=== PATIENT | female | born 1935 | race Caucasian/White ===

== ENCOUNTER 2020-07-24 11:23 | Inpatient (IN) | payer OTHER ==
[~2020-07-24] VITALS: Ht 149.9 cm; Wt 45.2 kg
[~2020-07-24 11:23] MED LIST: ALPR.25 PO; METO25ER PO; [UNRECOGNIZED DRUG - OTHER]
[2020-07-24 12:14] LABS: BASOPHILS ABSOLUTE AUTO 0.04 K/mm3 (0.00-0.23); BASOPHILS PERCENT AUTO 1 % (0-2); EOSINOPHILS ABSOLUTE AUTO 0.04 K/mm3 (0.00-0.68); EOSINOPHILS PERCENT AUTO 1 % (0-6); Hematocrit 41.3 % (33.0-51.0); Hemoglobin 12.7 g/dL (11.5-16.0); IMMATURE GRAN ABSOLUTE AUTO 0.02 K/mm3 (0.00-0.10); IMMATURE GRAN PERCENT AUTO 0 % (0-1); LYMPHOCYTES ABSOLUTE AUTO 1.98 K/mm3 (0.84-5.20); LYMPHOCYTES PERCENT AUTO 25 % (21-46); MONOCYTES ABSOLUTE AUTO 0.43 K/mm3 (0.16-1.47); MONOCYTES PERCENT AUTO 5 % (4-13); Mean Corpuscular HGB 29.6 pg (26.0-34.0); Mean Corpuscular HGB Conc 30.8 g/dL (31.5-36.5); Mean Corpuscular Volume 96 fL (80-100); NEUTROPHILS ABSOLUTE AUTO 5.55 K/mm3 (1.96-9.15); NEUTROPHILS PERCENT AUTO 69 % (41-73); Platelet Count 144 K/mm3 (150-400); RDW Coefficient Variation 15.1 % (11.7-14.2); Red Blood Cell Count 4.29 M/mm3 (3.80-5.20); White Blood Cell Count 8.06 K/mm3 (4.00-11.30)
[2020-07-24 12:19] LABS: Mean Platelet Volume 13.2 fL (9.1-12.4)
[2020-07-24 12:28] LABS: International Normalized Ratio 1.01; Prothrombin Time Results 10.8 Sec (9.7-11.5)
[2020-07-24 12:31] LABS: Alanine Aminotransfer (ALT/SGP 157 U/L (12-78); Albumin, Blood 3.6 g/dL (3.4-5.0); Alk Phos 212 U/L (50-136); Anion Gap 10 mmol/L (6-16); Aspartate Aminotrans (AST/SGOT 101 U/L (12-37); Bilirubin, Total 0.6 mg/dL (0.1-1.0); Blood Urea Nitrogen 29 mg/dL (8-24); Bun/Creatinine Ratio 33.2 (12.0-20.0); CO2, Blood 21 mmol/L (21-32); Chloride, Blood 113 mmol/L (98-108); Creatinine, Blood 0.87 mg/dL (0.40-1.00); Globulin, Blood 3.6 g/dL (2.2-4.0); Glomerular Filtration Rate >60 (60-); Glucose, Blood 161 mg/dL (70-99); Potassium, Blood 4.1 mmol/L (3.5-5.5); Sodium, Blood 144 mmol/L (136-145); Total Protein, Blood 7.2 g/dL (6.4-8.2); Troponin I 0.032 ng/mL (0.000-0.040)
[2020-07-24 12:44] LABS: Free Thyroxine 1.43 ng/dL (0.70-1.60); Magnesium, Blood 2.1 mg/dL (1.6-2.4); Thyroid Stimulating Hormone 2.18 uIU/mL (0.360-4.800)
--- NOTE | 2020-07-24 18:36 | NUR ---
PT ADMITTED TO PCU FROM ER FOR ATRIAL FIBRILLATION. PT IS ACCOMPANIED TO ROOM BY HER DAUGHTER. PT AND DAUGHTER BOTH DENY RECENT DX OF AFIB. PT ARRIVES A&OX4, DENIES CP, STATES MILD SOB WITH ACTIVITY. DILTIAZEM GTT INFUSING AT 5 MG/HR WITH HEART RATE AVERAGING 80-85 BPM. WILL CONTINUE TO MONITOR AND TREAT ACCORDINGLY.
--- NOTE | 2020-07-25 05:44 | NUR ---
shift summary pt rested throughout night ao tele - a fib. rate 70-80's on dilt gtt at 5mg/hr room air - sats >90% independently taking self to bathroom no c/o pain vss call light within reach, bed in lowest position. will continue to monitor.
--- NOTE | 2020-07-25 13:42 | NUR ---
echocardiogram complete
--- NOTE | 2020-07-25 18:48 | NUR ---
PT SUMMARY: PT WAS STOPPED ON CARDIZEM GTT STARTED ON PO METOPROLOL 25MG ADDITIONAL DOSE OF 12.5 WAS GIVEN PT WAS SUSPECTED HAVING VTACH RUNS ON THE MONITOR EKG WAS DONE SHOWS AFIB WITH JUNCTIONAL PACEMAKER RHYTHM PVC'S ABERRANTLY CONDUCTED COMPLEXES, DR RAYO IS AWARE PT NOT TO RESTART ON CARDIZEM GTT ECHO SHOWS EF 27%, PT'S HRR AT THIS TIME AFIB WITH CONSISTENT PVC'S ON THE MONITOR AT THE RATE OF 90-130'S MOSTLY ON THE 90-110'S. PT DENIES ANY CHEST PAIN, DIZZINESS OR FAINTING SPELLS. BP SYSTOLIC 120'S, SATS ABOVE 95% ON RA, AFEBRILE. PT' DAUGHTER WAS AT BEDSIDE THIS AFTERNOON AWARE OF PT'S SITUATION. PT IN BED RESTING AT THIS NO COMPLAINS, CALL LIGHTS IN REACH, WILL REPORT TO ONCOMING SHIFT
--- NOTE | 2020-07-26 05:08 | NUR ---
SHIFT SUMMARY PT RESTED COMFORTABLY THROUGH NIGHT AO X4 ROOM AIR - SATS >90% TELE A FIB - LOPRESSOR AT 2100 GIVEN. RATE IN 90'S-110'S VOIDING TO BATHROOM WITH SBA NO C/O PAIN VSS HAS SOME QUESTIONS ABOUT PLAN OF CARE CALL LIGHT WITHIN REACH, BED IN LOWEST POSITION. WILL CONTINUE TO MONITOR.
[2020-07-26 09:54] LABS: Anion Gap 10 mmol/L (6-16); Blood Urea Nitrogen 31 mg/dL (8-24); Bun/Creatinine Ratio 39.9 (12.0-20.0); CO2, Blood 21 mmol/L (21-32); Calcium, Blood 8.5 mg/dL (8.5-10.1); Chloride, Blood 117 mmol/L (98-108); Creatinine, Blood 0.78 mg/dL (0.40-1.00); Glomerular Filtration Rate >60 (60-); Glucose, Blood 153 mg/dL (70-99); Potassium, Blood 3.8 mmol/L (3.5-5.5); Sodium, Blood 148 mmol/L (136-145)
--- NOTE | 2020-07-26 11:56 | NUR ---
ASSUME CARE: PT IN BED RESTING DURING SHIFT CHANGE, VITALS HRR REMAINED AFIB 90-120'S INCREASES UP TO 160'S WITH EXERTION, BP SYSTOLIC 130'S, SATS ABOVE 95% ON RA, AFEBRILE. DR HULL CONSULTED TODAY DUE TO LOW EF AND MADE SOME MEDICATIONS CHANGES PT STARTED ON DIGOXIN LOADING DOSE 0.5MG GIVEN ON THE FIRST DOSE. PT ALSO STARTED ON ENTRESTO, MG IV CURRENTLY RUNNING AT 100MLS/HR. PT DENIES ANY CHEST PAIN BUT IS FEELING THE FLUTTER WITH EXERTION. NO OTHER ISSUES AT THIS TIME WILL CONTINUE TO MONITOR
--- NOTE | 2020-07-26 17:17 | NUR ---
PT SUMMARY: SEE PREVIOUS NOTE. PT RECEIVED 2 DOSES OF DIGOXIN AT THIS TIME, HRR REMAINED AFIB WITH PVC'S 90-120'S, BP SYSTOLIC 130'S PT DENIES ANY CHEST PAIN, SOB, DIZZINESS OR NAUSEA. PT HAS BEEN IN BED MOST OF THE SHIFT USES BEDSIDE COMMODE FOR TOILETING. NO OTHER ISSUES OR COMPLAINS ENCOUNTERED FOR THE SHIFT. ABLE TO MAKE NEEDS KNOWN, CALL LIGHTS IN REACH WILL REPORT TO ONCOMING SHIFT
[2020-07-27 05:24] LABS: Anion Gap 4 mmol/L (6-16); Blood Urea Nitrogen 17 mg/dL (8-24); Bun/Creatinine Ratio 24.7 (12.0-20.0); CO2, Blood 26 mmol/L (21-32); Calcium, Blood 8.5 mg/dL (8.5-10.1); Chloride, Blood 115 mmol/L (98-108); Creatinine, Blood 0.69 mg/dL (0.40-1.00); Glomerular Filtration Rate >60 (60-); Glucose, Blood 84 mg/dL (70-99); Potassium, Blood 3.9 mmol/L (3.5-5.5); Sodium, Blood 145 mmol/L (136-145)
--- NOTE | 2020-07-27 05:54 | NUR ---
SHIFT SUMMARY PT SLEPT T/O SHIFT. PT ALERT AND ORIENTED X 4. PT ABLE TO USE BEDSIDE COMMODE T/O SHIFT WITH WALKER BY SELF. PT BECAME TACHYCARDIC WITH EXERTION BUT HR STABALIZED AT REST. NO CHEST PAIN OR PRESSURE REPORTED. OXYGEN SATURATION MAINTAINED ABOVE 92% ON RA. BP STABLE. WILL CONTINUE TO MONITOR UNTIL REPORT GIVEN TO DAYSHIFT RN.
--- NOTE | 2020-07-27 18:05 | NUR ---
PT SUMMARY: PT FOR POSS DISCHARGE TOMORROW IF HR STABLE. PT'S HRR INCREASES UP TO 140'S AFIB WITH PVC'S WITH EXERTION RESTING HR 80-100, BP SYSTOLIC 130-150'S, SATS ABOVE 95% ON RA, AFEBRILE. NO ACUTE EVENTS ON TELE, DENIES CHEST PAIN, DIZZINES, MILD PALPITATIONS WITH EXERTION. PT GETS ANXIOUS AT TIMES ALSO STARTED ON DIURETICS OFTEN GETS UP TO USE THE COMMODE. ON DIGOXIN P.O. NO OTHER ISSUES ENCOUNTERED FOR THE SHIFT. HAD ADEQUATE AMOUNT OF URINE OUTPUT ENCOURAGED ADEQUATE FLUID INTAKE. PT IN BED EATING DINNER DAUGHTER AT BEDSIDE, CALLL LIGHTS IN REACH WILL REPORT TO ONCOMING SHIFT
[2020-07-28 05:33] LABS: Anion Gap 8 mmol/L (6-16); Blood Urea Nitrogen 14 mg/dL (8-24); Bun/Creatinine Ratio 17.9 (12.0-20.0); CO2, Blood 26 mmol/L (21-32); Calcium, Blood 8.6 mg/dL (8.5-10.1); Chloride, Blood 110 mmol/L (98-108); Creatinine, Blood 0.78 mg/dL (0.40-1.00); Glomerular Filtration Rate >60 (60-); Glucose, Blood 97 mg/dL (70-99); Magnesium, Blood 1.9 mg/dL (1.6-2.4); Potassium, Blood 3.5 mmol/L (3.5-5.5); Sodium, Blood 144 mmol/L (136-145)
--- NOTE | 2020-07-28 06:23 | NUR ---
SHIFT SUMMARY PT SLEPT T/O SHIFT. PT ALERT AND ORIENTED. INDEPENDENT AND AMBULATORY TO COMMODE. TACHYCARDIC AT TIMES. HR RETURNED TO 90'S WHEN PT NOT AMBULATING. BP STABLE. PT REPORTS NO CP OR PRESSURE. OXYGEN ABOVE 92% ON RA. WILL CONTINUE TO MONITOR UNTIL REPORT GIVEN TO DAYSHIFT RN.
[2020-07-28] MEDS ORDERED: ATORVASTATIN CA40 M1 PO (14:40)
[2020-07-28] MEDS ORDERED: XARELTO15 M1 PO (14:41)
[2020-07-28] MEDS ORDERED: METO25ER PO (14:41)
[2020-07-28] MEDS ORDERED: LANOXIN125 MCG PO (14:41)
[2020-07-28] MEDS ORDERED: ENTRESTO 24 MG1 EACH PO (14:42)
[2020-07-28] MEDS ORDERED: TORSE20 PO (14:42)
[2020-07-28] MEDS ORDERED: SPIR25 PO (14:42)
--- NOTE | 2020-07-28 16:26 | NUR ---
SHIFT SUMMARY PT A&Ox4; CALM AND COOPERATIVE WITH CARE. PT RESTING IN BED DURING SHIFT; UP SBA. PT DENIES PAIN, CHEST PAIN, SOB, NAUSEA AND DIZZINESS. HR 70-90 AT RESTL ELEVATED TO LOW 100'S WITH ACTIVITY. VSS. NO OTHER ACUTE CHANGES NOTED DURING SHIFT. PT EDUCATED ON DISCHARGE INSTRUCTIONS, FOLLOW UP APPOINTMENT, ESTABLISHING PCP AND MEDICATIONS. PRESCRIPTIONS CALLED INTO [facility] PER PT REQUEST. PT AGREEABLE TO SQL SERVER DBA DEVELOPER MEDICATIONS TODAY. PT LEFT ROOM VIA WHEELCHAIR AT 1523. PT STABLE UPON DISCHARGE.
== END 2020-07-28 15:23 | disposition home or self-care (01) | DRG 308 ==
LOC: ER 11:23 → PCU 11:24 → ENPENDDIS 07-28 14:36 → PCU 07-28 15:23
PROVIDERS: Emergency Medicine; Internal Medicine Cardiovascular Disease; Physician Assistant; ADMIT Internal Medicine
DX: I48.91 Unspecified atrial fibrillation (principal); I50.43 Acute on chronic combined systolic (congestive) and diastolic (congestive) heart failure; I25.10 Atherosclerotic heart disease of native coronary artery without angina pectoris; Z95.1 Presence of aortocoronary bypass graft; E78.5 Hyperlipidemia, unspecified; Z87.891 Personal history of nicotine dependence; R74.01 Elevation of levels of liver transaminase levels; R54 Age-related physical debility; I11.0 Hypertensive heart disease with heart failure
CPT/HCPCS: 36415; 71046; 80048; 80053; 83735; 83880; 84439; 84443; 84484; 85025; 85610; 93005; 93010; 93306; 96365; 96366; 96367; 96375; 96376; 99285-25; A9270; A9270-GY; G0008; G0378; J1160; J3475; Q2038

== ENCOUNTER 2022-08-23 09:42 | Emergency (ER) | payer OTHER ==
[~2022-08-23] VITALS: Ht 152.4 cm; Wt 47.6 kg
[~2022-08-23 09:42] MED LIST changes: +ATORVASTATIN CA40 M1 PO; +ENTRESTO 24 MG1 EACH PO; +LANOXIN125 MCG PO; +SPIR25 PO; +TORSE20 PO; +XARELTO15 M1 PO
[2022-08-23 11:20] LABS: BASOPHILS ABSOLUTE AUTO 0.05 K/mm3 (0.00-0.23); BASOPHILS PERCENT AUTO 1 % (0-2); EOSINOPHILS ABSOLUTE AUTO 0.04 K/mm3 (0.00-0.68); EOSINOPHILS PERCENT AUTO 1 % (0-6); Hematocrit 33.1 % (33.0-51.0); Hemoglobin 10.2 g/dL (11.5-16.0); IMMATURE GRAN ABSOLUTE AUTO 0.02 K/mm3 (0.00-0.10); IMMATURE GRAN PERCENT AUTO 0 % (0-1); LYMPHOCYTES ABSOLUTE AUTO 1.34 K/mm3 (0.84-5.20); LYMPHOCYTES PERCENT AUTO 20 % (21-46); MONOCYTES ABSOLUTE AUTO 0.58 K/mm3 (0.16-1.47); MONOCYTES PERCENT AUTO 9 % (4-13); Mean Corpuscular HGB 26.6 pg (26.0-34.0); Mean Corpuscular HGB Conc 30.8 g/dL (31.5-36.5); Mean Corpuscular Volume 86 fL (80-100); Mean Platelet Volume 11.8 fL (9.1-12.4); NEUTROPHILS PERCENT AUTO 69 % (41-73); Platelet Count 192 K/mm3 (150-400); RDW Coefficient Variation 16.8 % (11.7-14.2); RDW Standard Deviation 53.4 fL (35.1-46.3); Red Blood Cell Count 3.84 M/mm3 (3.80-5.20); White Blood Cell Count 6.63 K/mm3 (4.00-11.30)
[2022-08-23 11:38] LABS: Albumin, Blood 3.7 g/dL (3.4-5.0); Albumin/Globulin Ratio 0.9 (0.8-1.8); Bilirubin, Total 0.6 mg/dL (0.1-1.0); Calcium, Blood 9.6 mg/dL (8.5-10.1); Creatinine, Blood 0.78 mg/dL (0.40-1.00); Globulin, Blood 4.2 g/dL (2.2-4.0); Potassium, Blood 4.6 mmol/L (3.5-5.5); Total Protein, Blood 7.9 g/dL (6.4-8.2)
== END 2022-08-23 14:23 | disposition home or self-care (01) ==
LOC: ER 09:42
PROVIDERS: Student in an Organized Health Care Education/Training Program
DX: R19.7 Diarrhea, unspecified (principal); K64.9 Unspecified hemorrhoids; I25.10 Atherosclerotic heart disease of native coronary artery without angina pectoris; I11.0 Hypertensive heart disease with heart failure; I50.42 Chronic combined systolic (congestive) and diastolic (congestive) heart failure; E86.0 Dehydration; I48.91 Unspecified atrial fibrillation; Z95.1 Presence of aortocoronary bypass graft; Z91.011 Allergy to milk products; Z79.899 Other long term (current) drug therapy; Z79.02 Long term (current) use of antithrombotics/antiplatelets
CPT/HCPCS: 36415; 80053; 83735; 85025; 86850; 86900; 86901; 93005; 93010; J7030

== ENCOUNTER 2024-03-24 13:33 | Inpatient (IN) | payer OTHER ==
[~2024-03-24] VITALS: Ht 162.6 cm; Wt 48.2 kg
[2024-03-24 14:51] LABS: BASOPHILS ABSOLUTE AUTO 0.02 K/mm3 (0.00-0.23); BASOPHILS PERCENT AUTO 0 % (0-2); EOSINOPHILS PERCENT AUTO 0 % (0-6); Hematocrit 36.9 % (33.0-51.0); Hemoglobin 12.2 g/dL (11.5-16.0); IMMATURE GRAN ABSOLUTE AUTO 0.07 K/mm3 (0.00-0.10); IMMATURE GRAN PERCENT AUTO 1 % (0-1); LYMPHOCYTES ABSOLUTE AUTO 1.49 K/mm3 (0.84-5.20); LYMPHOCYTES PERCENT AUTO 11 % (21-46); MONOCYTES ABSOLUTE AUTO 0.85 K/mm3 (0.16-1.47); MONOCYTES PERCENT AUTO 6 % (4-13); Mean Corpuscular HGB 30.6 pg (26.0-34.0); Mean Corpuscular HGB Conc 33.1 g/dL (31.5-36.5); Mean Corpuscular Volume 93 fL (80-100); Mean Platelet Volume 11.8 fL (9.1-12.4); NEUTROPHILS ABSOLUTE AUTO 10.83 K/mm3 (1.96-9.15); NEUTROPHILS PERCENT AUTO 82 % (41-73); Platelet Count 194 K/mm3 (150-400); RDW Coefficient Variation 13.2 % (11.7-14.2); RDW Standard Deviation 44.6 fL (35.1-46.3); Red Blood Cell Count 3.99 M/mm3 (3.80-5.20); White Blood Cell Count 13.26 K/mm3 (4.00-11.30)
[2024-03-24 15:28] LABS: Alanine Aminotransfer (ALT/SGP 46 U/L (12-78); Alk Phos 151 U/L (50-136); Anion Gap 12 mmol/L (3-11); Aspartate Aminotrans (AST/SGOT 59 U/L (12-37); Bilirubin, Total 0.9 mg/dL (0.1-1.0); Blood Urea Nitrogen 22 mg/dL (8-24); Bun/Creatinine Ratio 28.8 (12.0-20.0); CO2, Blood 23 mmol/L (21-32); Calcium, Blood 9.7 mg/dL (8.5-10.1); Chloride, Blood 112 mmol/L (98-108); Creatinine, Blood 0.77 mg/dL (0.40-1.00); Digoxin (Lanoxin) 1.72 ug/mL (0.80-2.00); Glomerular Filtration Rate 74 (60-); Glucose, Blood 120 mg/dL (70-99); Sodium, Blood 143 mmol/L (136-145)
[2024-03-24 15:36] LABS: Prothrombin Time Results 10.7 Sec (9.7-11.5)
[2024-03-24] MEDS ORDERED: Ondansetron HCl 2 MG / ML 2ML Vial IV PRN (16:30)
[2024-03-24] MEDS ORDERED: Lactated Ringer's 1,000 ML IV SCH (17:00)
[2024-03-24] MEDS ORDERED: Aspirin 300 MG Supp PR SCH (17:00)
[2024-03-24 22:37] VITALS: BP 179/87
[2024-03-25 05:02] VITALS: BP 152/66
--- NOTE | 2024-03-25 05:50 | NUR ---
NEWSPAPER DELIVERER PATIENT WAS A&OX2-3 UPON ADMISSION DURING THE SHIFT BUT NOW SHE IS AWAKE, ALERT AND IS A&OX4. BP ELEVATED, ON ROOM AIR, DENIED ANY PAIN. 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 PATIENT HAS A RIGHT EYE GAZE, VISION IS IMPAIRED, CANNOT COUNT HOW MANY FINGERS WAS HOLDING WHEN ASKED, SLOW EYE MOVEMENT AND REACTION TO LIGHT. PATIENT HAS SOME RED ABRASION TO LEFT HIPS AND LEFT SHOULDER, SMALL SKIN TEAR TO RIGHT ARM AND LEFT LEG, NONBLANCHABLE REDNESS UNDER BILATERAL FEETS. PATIENT IS CURENTLY ON BEDREST DUE TO DEFICIT AND IS NPO.
[2024-03-25 07:40] VITALS: BP 150/62
[2024-03-25] MEDS ORDERED: Lactated Ringer's 1,000 ML IV SCH (14:50)
[2024-03-25] MEDS ORDERED: Enoxaparin 40 MG/0.4 ML SYR SC SCH (15:00)
[2024-03-25 16:01] VITALS: BP 158/77
--- NOTE | 2024-03-25 18:27 | NUR ---
SHIFT SUMMARY PT AOX1-2, WAXES AND WANES. MECHANICAL LIFT AT THIS TIME BUT L SIDE DEFICITS SIGNIFICANT. SLEPT MOST OF THE SHIFT. NPO AT THIS TIME FOR ANYTHIN ORAL PER SPEECH THERAPY. DAUGHTER AT THE BS. PT IS INCONTIENENT, BRIEF CHANGED NEEDED. REPOSITIONED THROUGHOUT THE SHIFT. BA ON. CALL LIGHT WITHIN REACH, BED LOCKED AND IN THE LOWEST POSITION. WILL REPORT TO ONCOMING NURSE.
[2024-03-25 19:41] VITALS: BP 165/69
[2024-03-25] MEDS ORDERED: Metoprolol Tartrate 1 MG/ML 5 ML VIAL IV ONE (22:30)
[2024-03-25] MEDS ORDERED: Metoprolol Tartrate 1 MG/ML 5 ML VIAL IV PRN (23:35)
[2024-03-26] VITALS (11 sets, daily range): BP systolic 140–185; BP diastolic 68–155
--- NOTE | 2024-03-26 04:02 | NUR ---
TIRE STRIPPER PATIENT IS A&O X2-3, CONFUSED AT TIMES, WORD SALAD WHEN COMMUNICATING WITH STAFF. VITAL UNSTABLE, BP ELEVATED PRN METOPROLOL GIVEN, ON TELE RUNNING A-FIB BETWEEN 100 TO 150. METOPROLOL HELPED DECREASE HEART RATE. NOW RUNNING SINUS IN THE 70S. IT OCCOSIONAL INCREASES TO THE 100S. PATIENT IS ON ON BEDREST DUE TO LEFT SIDED DEFICIT FROM CVA. STILL NPO BECAUSE SHE FAILED HER SWALLOW STUDY, SLURR SPEECH. INCONTINENT OF BOWEL AND BLADDER,
[2024-03-26 06:11] LABS: BASOPHILS ABSOLUTE AUTO 0.06 K/mm3 (0.00-0.23); BASOPHILS PERCENT AUTO 1 % (0-2); EOSINOPHILS PERCENT AUTO 0 % (0-6); Hematocrit 35.3 % (33.0-51.0); Hemoglobin 11.4 g/dL (11.5-16.0); IMMATURE GRAN ABSOLUTE AUTO 0.04 K/mm3 (0.00-0.10); IMMATURE GRAN PERCENT AUTO 0 % (0-1); LYMPHOCYTES ABSOLUTE AUTO 1.51 K/mm3 (0.84-5.20); LYMPHOCYTES PERCENT AUTO 13 % (21-46); MONOCYTES ABSOLUTE AUTO 0.88 K/mm3 (0.16-1.47); MONOCYTES PERCENT AUTO 8 % (4-13); Mean Corpuscular HGB 30.6 pg (26.0-34.0); Mean Corpuscular HGB Conc 32.3 g/dL (31.5-36.5); Mean Corpuscular Volume 95 fL (80-100); Mean Platelet Volume 12.5 fL (9.1-12.4); NEUTROPHILS ABSOLUTE AUTO 9.32 K/mm3 (1.96-9.15); NEUTROPHILS PERCENT AUTO 79 % (41-73); Platelet Count 155 K/mm3 (150-400); RDW Coefficient Variation 13.5 % (11.7-14.2); RDW Standard Deviation 46.5 fL (35.1-46.3); Red Blood Cell Count 3.73 M/mm3 (3.80-5.20); White Blood Cell Count 11.81 K/mm3 (4.00-11.30)
[2024-03-26 06:32] LABS: Anion Gap 15 mmol/L (3-11); Blood Urea Nitrogen 24 mg/dL (8-24); Bun/Creatinine Ratio 37.9 (12.0-20.0); CHOL/HDL RATIO 2.5; CO2, Blood 20 mmol/L (21-32); Calcium, Blood 9.3 mg/dL (8.5-10.1); Chloride, Blood 115 mmol/L (98-108); Cholesterol 163 mg/dL (50-200); Creatinine, Blood 0.63 mg/dL (0.40-1.00); Glomerular Filtration Rate 85 (60-); Glucose, Blood 112 mg/dL (70-99); HDL Cholesterol 66 mg/dL (>39); LDL/HDL RATIO 1.1; Low Density Lipoprotein Chol 75 mg/dL (0-110); Potassium, Blood 3.7 mmol/L (3.5-5.5); Sodium, Blood 146 mmol/L (136-145); Triglycerides 112 mg/dL (30-160); Very Low Density Lipoprot Chol 22 mg/dL (6-32)
[2024-03-26] MEDS ORDERED: HydrALAZINE HCl 20 MG / ML 1ML Vial IV PRN (07:40)
[2024-03-26] MEDS ORDERED: FentaNYL Citrate 50 MCG/ML 2 ML Injection IV PRN ×2 (07:55→11:05)
[2024-03-26] MEDS ORDERED: Metoprolol Tartrate 1 MG/ML 5 ML VIAL IV SCH (12:00)
[2024-03-26] MEDS ORDERED: Aa 4.25%/Calcium/Lytes/D5w 1,000 ML IV SCH (13:30)
--- NOTE | 2024-03-26 14:46 | NUR ---
NOTE: PROVIDER MADE AWARE OF ALL ELEVATED BP'S THUS FAR IN THE SHIFT. DISCUSSED WITH HER IN PERSON. MEDICATED PER THE EMAR. PT REMAINS ON TELE.
--- NOTE | 2024-03-26 15:15 | NUR ---
Met with patient she denies headache, states neck very stiff and uncomfortable some preassure. denies nasuea of to much pain in back. Pt lying falt minimal movement. Pt daughter at bedside. Review of pt symptoms and what we can offer. Daughter was distraight by conversation about hospice with staff. Offered to meet with family tommorow. Gave Her the hard choices for loving families book. Discussed with her not here to put her on hospice but to be of service in helping family navigate the future. Also advised that my ultimate goal is to offer care and reduce suffering. Review of pt with physical therapy will follow up with family and staff.
[2024-03-26] MEDS ORDERED: Ampicillin Sod/Sulbactam Sod 3 GM in NS 100 ML IV SCH (15:27)
[2024-03-26] MEDS ORDERED: Furosemide 10 MG/ML 4ML Vial IV SCH (16:00)
[2024-03-26] MEDS ORDERED: NS 250 ML IV PRN (16:15)
--- NOTE | 2024-03-26 17:56 | NUR ---
SHIFT SUMMARY PT AOX1, BR AT THIS TIME. LITTLE MOBILITY WITH THE L ARM, CANNOT USE INDEPENDENTLY. CONFUSED OFF AND ON THROUGHOUT THE SHIFT, SIMILAR TO YESTERDAY. REPOSTIONED THROUGHOUT THE SHIFT, BRIEF CHANGED NEEDED. PURWICK CURRENTLY IN PLACE. NOTIFIED BY TELE OF PT'S HR IN THE 150'S, MEDICATED PER THE EMAR. PROVIDER NOTIFIED. PT'S HR IS NOW IN THE 80'S. SHE TOLERATED THE MEDICATION WELL. FAMILY IS AT THE BS, PALLIATIVE CONSULTED EARLIER AND A FAMILY MEETING WILL BE ORGANIZED TO DETERMINE NEXT STEPS OF CARE. PT DOES NOT CALL. SHE SLEEPS OFF AND ON. MEDICATED PER THE EMAR FOR PAIN. CALL LIGHT WITHIN REACH, BED ALARM ON, BED LOCKED IN THE LOWEST POSITION. WILL REPORT TO ONCOMING NURSE.
[2024-03-26] MEDS ORDERED: Enoxaparin 30 MG/0.3 ML SYR SC SCH (18:00)
[2024-03-27] MEDS ORDERED: Acetaminophen 650 MG Supp PR PRN (00:25)
[2024-03-27 03:27] VITALS: BP 172/88
[2024-03-27 06:02] LABS: BASOPHILS ABSOLUTE AUTO 0.04 K/mm3 (0.00-0.23); BASOPHILS PERCENT AUTO 0 % (0-2); EOSINOPHILS PERCENT AUTO 0 % (0-6); Hematocrit 34.7 % (33.0-51.0); Hemoglobin 11.5 g/dL (11.5-16.0); IMMATURE GRAN ABSOLUTE AUTO 0.09 K/mm3 (0.00-0.10); IMMATURE GRAN PERCENT AUTO 1 % (0-1); LYMPHOCYTES ABSOLUTE AUTO 1.57 K/mm3 (0.84-5.20); LYMPHOCYTES PERCENT AUTO 12 % (21-46); MONOCYTES ABSOLUTE AUTO 0.97 K/mm3 (0.16-1.47); MONOCYTES PERCENT AUTO 7 % (4-13); Mean Corpuscular HGB 30.4 pg (26.0-34.0); Mean Corpuscular HGB Conc 33.1 g/dL (31.5-36.5); Mean Corpuscular Volume 92 fL (80-100); Mean Platelet Volume 12.3 fL (9.1-12.4); NEUTROPHILS ABSOLUTE AUTO 10.62 K/mm3 (1.96-9.15); NEUTROPHILS PERCENT AUTO 80 % (41-73); Platelet Count 163 K/mm3 (150-400); RDW Coefficient Variation 13.5 % (11.7-14.2); RDW Standard Deviation 45.7 fL (35.1-46.3); Red Blood Cell Count 3.78 M/mm3 (3.80-5.20); White Blood Cell Count 13.29 K/mm3 (4.00-11.30)
--- NOTE | 2024-03-27 06:34 | NUR ---
SHIFT SUMMARY NOC PT A/O X 1-4 AND WAXES AND WANES WITH MENTAION. PT L SIDE DEFICIT HAS IMPROVED SLIGHTLY SINCE YESTERDAY AND PT IS ABLE TO MOVE ARM VOLUNTARILY. PT STILL NPO STATUS DUE TO HIGH ASPIRATION RISK FROM CVA, PT IS RECEIVING CLINIMIX @ 75 ML/HR FOR NUTRITIONAL NEEDS. PT IS ON TELE AFIB IN 70'S-80'S, BUT HAD BRIEF RUN WITH HR IN 140'S -150'S, AND SCEHDULED METOPROLOL GIVEN AND DECREASED HR BACK INTO 80'S. PT HAD [address] ELEVATION AND DEPRESSION ON TELE, PT REMAINED ASYMPTOMATIC. EKG DONE AND MIRRORED ONE FROM TWO YEARS AGO. BP ALSO ELEVATED MULTIPLE TIMES AND IV HYDRALAZINE GIVEN WITH DESIRED EFFECT. PUREWICK IN PLACE FOR INCONTINENCE. PT CURRENTLY RESTING WITH BED ALARM ON, BED IN LOWEST POSITION, AND CALL LIGHT WITHIN REACH.
[2024-03-27 06:39] LABS: Bun/Creatinine Ratio 47.5 (12.0-20.0); Calcium, Blood 9.3 mg/dL (8.5-10.1); Creatinine, Blood 0.74 mg/dL (0.40-1.00); Potassium, Blood 3.2 mmol/L (3.5-5.5)
--- NOTE | 2024-03-27 06:45 | NUR ---
NOTIFIED BY ENVIRONMENTAL HEALTH AIDE THAT PT HR WAS IN 150'S-160'S AND THAT ST ELEVATION AND DEPRESSION BEING SEEN ON TELEMETRY. PT ASYMPTOMATIC WHEN S/S ASSESSED. SCHEDULED DOSE OF METOPROLOL GIVEN FOR RATE CONTRO, AND EKG DONE THAT SHOWED SIMILARITIES FROM EKG PERFORMED IN 2021. NO FURTHER ORDERS GIVEN AT THIS TIME.
[2024-03-27 08:01] VITALS: BP 164/102
[2024-03-27 12:10] VITALS: BP 158/68
[2024-03-27 14:12] LABS: Magnesium, Blood 2.2 mg/dL (1.6-2.4); Phosphorus, Blood 2.9 mg/dL (2.5-4.9)
[2024-03-27 15:34] VITALS: BP 161/93
[2024-03-27] MEDS ORDERED: Multivitamins 10 ML,ZINC SULF/CUSO4 P-HYD/MN/CR/SE 1 ML,Thiamine HCl 100 MG in Aa 4.25%... IV SCH (16:00)
[2024-03-27] MEDS ORDERED: Furosemide 10 MG/ML 4ML Vial IV SCH (16:00)
--- NOTE | 2024-03-27 16:34 | NUR ---
Met with patients family to review prognosis. Went over her prognosis with family. Review of pt mental status, vitals, labs, diagnosics. Historical medical care and comorbid conditions. Review with family risk for furhter embolic events. Discussed giveing her dignity and comfort and reduction of suffering. We discussed hospice versus palliative care team on discharge. We discussed if pt has further decline on this admission will transition to comfort care. We reaffirmed that if she improves on hospice they can request an evaluation for furhter rehabilitation care. Updateded Rehab staff and will follow up with family for support.
--- NOTE | 2024-03-27 17:37 | NUR ---
SPOKE TO DR DEWITT *LATE ENTRY* PER DR CAMPUZANO NEW BNP ORDERED. ORDER TO HOLD IV LASIX UNTIL THE RESULT IS BACK AND HE HAS SAID YES OR NO ON THE DOSE.
[2024-03-27 18:05] LABS: Bun/Creatinine Ratio 52.8 (12.0-20.0); Calcium, Blood 9.5 mg/dL (8.5-10.1); Creatinine, Blood 0.76 mg/dL (0.40-1.00); Potassium, Blood 3.4 mmol/L (3.5-5.5)
[2024-03-27] MEDS ORDERED: Potassium Chloride 40 MEQ in NS 250 ML IV ONE (18:25)
[2024-03-27 18:47] VITALS: BP 164/80
[2024-03-27 19:27] VITALS: BP 180/102
--- NOTE | 2024-03-27 19:49 | NUR ---
SHIFT SUMMARY- PT ALERT AND ORIENTED TO SELF. FAMILY HAS BEEN AT THE BEDSIDE T/O THE DAY. PT HAS BEEN MINIMALLY INTERACTIVE WITH NURSING STAFF, SLEEPING MOSTLY. SHE SEEMS TO E HAVNG PERIODS OF APNEA, FOLLOWED BY RAPID BREATHING FOR [address] DEWITT ABOUT THE IV LASIX GIVEN THE DROP IN THE PT'S POTASSIUM. AWARE OF THE DROP. LASIX ORDERED DAILY DOSE TIME CHANGED TO 1600. PER THIS DOS WAS HELD UNTIL BMP RESULTS WERE IN. CALLED DR DEWITT WITH THE RESULT OF THE BMP AD RECIEVED A VERBAL OK TO GIVE THE LASIX AT THAT TIME. SBP 160'S AT THE TIME OF ADMINISTRATION. METOPROLOL NOT GIVEN NIGHT RN AWARE, VS RECHECK DUE AFTER SHIFT CHANGE, THEN METOPROLOL CAN BE GIVEN. NIGHT RN AWARE. IV POTASSIUM ORDERED AT 1825, DOSE NOT RECIEVED FROM PHARMACY AT THE TIME OF SHIFT CHANGE. NIGHT RN AWARE WELL.
[2024-03-28] VITALS (7 sets, daily range): BP systolic 115–187; BP diastolic 76–109
--- NOTE | 2024-03-28 04:50 | NUR ---
SHIFT SUMMARY PATIENT HAD NO ACUTE CHANGES. ALERT TO SELF AND BEDREST. NPO. PIV INTACT. CLINIMIX INFUSING @ 75 mL/HR. IV K+ INFUSED AND IV ABX INFUSED. PUREWICK IN PLACE. DENIES CHEST PAIN, SOB, AND N/V. HYPERTENSIVE/AFEBRILE. CALL LIGHT IN REACH. BED IN LOWEST POSITION AND ALARM ACTIVATED. WILL CONTINUE TO MONITOR UNTIL DAY SHIFT NURSE ASSUMES CARE.
--- NOTE | 2024-03-28 06:19 | NUR ---
BP 187/109 AND IV APRESOLINE 10 MG GIVEN FOR SBP >160 BP 115/98 ON RECHECK. NOTE IV LOPRESSOR 5 MG GIVEN @ 01:26. WCTM.
[2024-03-28 06:31] LABS: Bun/Creatinine Ratio 56.5 (12.0-20.0); Calcium, Blood 9.3 mg/dL (8.5-10.1); Creatinine, Blood 0.74 mg/dL (0.40-1.00); Potassium, Blood 4.1 mmol/L (3.5-5.5)
[2024-03-28] MEDS ORDERED: CloNIDine HCL 0.2 MG Patch TOP SCH (08:00)
[2024-03-28] MEDS ORDERED: HydrALAZINE HCl 20 MG / ML 1ML Vial IV PRN (11:55)
[2024-03-28] MEDS ORDERED: Metoprolol Tartrate 1 MG/ML 5 ML VIAL IV PRN (15:10)
[2024-03-28] MEDS ORDERED: FAT EMULSION 20% IV SCH (16:00)
--- NOTE | 2024-03-28 19:33 | NUR ---
ASSUMED CARE OF PT AT 1200. PT PLEASANT THIS AFT. ABLE TO ANSWER NAME, , YEAR. DENIES PAIN AT THIS TIME. DISCUSSED TELE RVR RATE AT 150'S EVERY 1-2 HRS FOR A MIN OR SO WITH DR DEWITT. ORDERS FOR METOPROLOL PRN GIVEN. FAMILY IN TO SEE AND VISIT WITH PT TODAY. LIPIDS STARTED THIS AFTERNOON. ARE TO RUN ONLY 125 MG LIPIDS THEN TO STOP. DWAYNE PRINCE WAS ADVISED. NO OTHER CONCERNS NTOED. BED IN LOW POSITION, CALL LITE IHN REACH, BED ALARM ON FOR SAFETY
[2024-03-29] VITALS (7 sets, daily range): BP systolic 128–172; BP diastolic 64–114
--- NOTE | 2024-03-29 01:38 | NUR ---
HAND LENS POLISHER REPORTED HR TO 150 EVERY FEW HOURS AND BACK DOWN TO AFIB 80'S. TM
--- NOTE | 2024-03-29 02:07 | NUR ---
STRIP MACHINE OPERATOR REPORTS HR >130 FOR >5MINUTES (6 MIN). HR 130-150. IV LOPRESSOR 5 MG GIVEN PER EMAR PER PARAMETERS WITH TELE MONITORING. HR RECHECK: AFIB 70'S. PATIENT RESTING. WCTM.
--- NOTE | 2024-03-29 04:09 | NUR ---
SHIFT SUMMARY PATIENT HAD A FEW INCREASE HR RATES PER TECH (SEE NOTE) AND IV LOPRESSOR 5 MG GIVEN PER EMAR X ONE. AXOX 3 AND BEDREST, NPO. PIV INTACT. IV LIPIDS & ABX INFUSED. CLINIMIX INFUSING @ 75 mL/HR. REPORTED SHOULDER PAIN X ONE AND IV FENTANYL 25 MCG GIVEN PER EMAR. PUREWICK IN PLACE. DENIES CHEST PAIN, SOB, AND N/V. VSS/AFEBRILE. CALL LIGHT IN REACH. BED IN LOWEST POSITION AND ALARM ACTIVATED. WILL CONTINUE TO MONITOR UNTIL DAY SHIFT NURSE ASSUMES CARE.
[2024-03-29 06:10] LABS: Hematocrit 34.9 % (33.0-51.0); Hemoglobin 11.2 g/dL (11.5-16.0); Mean Corpuscular HGB 30.4 pg (26.0-34.0); Mean Corpuscular HGB Conc 32.1 g/dL (31.5-36.5); Mean Corpuscular Volume 95 fL (80-100); Platelet Count 155 K/mm3 (150-400); RDW Coefficient Variation 13.5 % (11.7-14.2); RDW Standard Deviation 47.1 fL (35.1-46.3); Red Blood Cell Count 3.69 M/mm3 (3.80-5.20); White Blood Cell Count 11.04 K/mm3 (4.00-11.30)
[2024-03-29 06:38] LABS: Bun/Creatinine Ratio 62.2 (12.0-20.0); Calcium, Blood 8.9 mg/dL (8.5-10.1); Creatinine, Blood 0.71 mg/dL (0.40-1.00); Potassium, Blood 3.5 mmol/L (3.5-5.5)
--- NOTE | 2024-03-29 08:09 | NUR ---
TELE CALLED AT 07:50. 6 BEAT RUN V-TACH. RETURNED TO AFIB IN 80'S. LAST NITE METOPROLOL WAS GIVEN FOR SUSTAINED H/R >130 AT 01:45. H/R DROPPED TO 40-50'S AT ABOUT 02:30, SUSTAINED LOWS UNTIL ABOUT 06:00 THIS AM. THEN UP TO 80'S. WILL REPORT TO DR DEWITT WHEN AT BEDSIDE.
[2024-03-29] MEDS ORDERED: Metoprolol Tartrate 1 MG/ML 5 ML VIAL IV PRN (09:09)
[2024-03-29 10:34] LABS: Magnesium, Blood 2.3 mg/dL (1.6-2.4); Phosphorus, Blood 3.5 mg/dL (2.5-4.9)
[2024-03-29] MEDS ORDERED: Docusate Sodium 100 MG UDC PT PRN (13:25)
[2024-03-29] MEDS ORDERED: Bisacodyl 10 MG Supp PR PRN (13:25)
[2024-03-29] MEDS ORDERED: Magnesium Hydroxide Conc 10 ML UDC PT PRN (13:25)
--- NOTE | 2024-03-29 15:01 | NUR ---
Spiritual Care Visit. Pt. is resting and mostly not responsive. Facilitate life review with several family members that are present. Listen with interest and empathy, and in the process began to establish rapport with the family that were at bedside. One of the Pts. daughters suggested that we gather in a barrow around the Pts. bed. We did so, and naseem rucker prayed for both the Pt. and family. There was no substantive discussion regarding the Pts. code status, but the family verbalized gratitude for the spiritual care visit.
--- NOTE | 2024-03-29 16:38 | NUR ---
Met with pt's daughter and granddaughter at length this am. Family members state they are mistrusting of the medical community, but after we reviewed the pt's case, they both report feeling better about the overall situation. They verbalize understanding that things can change daily, and we will continue to keep them in the loop every step of the way. Dobhoff was ordered today, but pt declined the placement, states she "knows about those," and does not want to have discomfort related to it. Will continue to monitor and provide education and support to pt and family.
--- NOTE | 2024-03-29 19:56 | NUR ---
PT QUITE PLEASANT TODAY. NO C/O PAIN FOR ME. DAUGHTER AT BEDSIDE MOST OF DAY. PT REFUSED DOBHOFF. TWICE TODAY. CONTINUES ON CLINIMIX AND LIPIDS. PLAN IS TO CONTINUE TO ENCOURAGE TO GET TUBE FEEDING IF AGREEABLE WITH PT. PLAN IS DR AND NUTRITION TO DISCUSS AGAIN TOMORROW AND SEE IF AGREEABLE. NO OTHER CONCERNS NOTED. BED IN LOW POSITION, CALL LITE IN REACH. BED ALARM ON FOR SAFETY
[2024-03-30 04:43] VITALS: BP 142/85
--- NOTE | 2024-03-30 05:56 | NUR ---
SHIFT SUMMARY: HR SUSTAINED > 130 BPM AT ONE POINT DURING THIS SHIFT; MEDICATED WITH LOPRESSOR 2.5 MG IV WITH HR DECREASING TO 70'S. C/O HEADACHE AND BACK PAIN; MEDICATED ONCE WITH FENTANYL, WHICH DIDN'T HELP FOR LONG, SO TYLENOL AL GIVEN WITH BETTER RELIEF. RESPONDS TO VERBAL STIMULI, CONFUSED AT TIMES, HAS L HEMINEGLECT. AT ONE POINT SHE ASKED FOR HER WALKER SO SHE COULD GET OOB. REPOSITIONED OFTEN FOR HER COMFORT. PUREWICK IN PLACE TO MANAGE URINE. CLINIMIX INFUSING AT 75 ML/HR.
[2024-03-30 06:13] LABS: Bun/Creatinine Ratio 59.2 (12.0-20.0); Calcium, Blood 8.7 mg/dL (8.5-10.1); Creatinine, Blood 0.73 mg/dL (0.40-1.00); Magnesium, Blood 2.4 mg/dL (1.6-2.4); Phosphorus, Blood 3.8 mg/dL (2.5-4.9); Potassium, Blood 3.5 mmol/L (3.5-5.5)
[2024-03-30 07:46] VITALS: BP 179/107
[2024-03-30] MEDS ORDERED: Thiamine HCl 100 MG Tab PT SCH (09:00)
[2024-03-30] MEDS ORDERED: Fat Emulsion 20 % IV 250 ML IV SCH (09:00)
[2024-03-30 14:30] VITALS: BP 164/97
--- NOTE | 2024-03-30 19:56 | NUR ---
VSS expect for high HR in 150s, A-fib on tele, A-Ox2 confused at times and disorient to time and situation, bed bound, states moderate pain that were well managed with prn supository tylenol, show no signs of SOB, on RA. Lungs diminish with fine crackles in bases, bowel sounds hypoactive, incontine of urine, purwick in place. Pt and family agreed to place NG-tube for tube feeding, attempt was made, pt did not tolerate well, after placement pt complained of pain and was dry heavying, chest x-ray showed that tube had coliled up during placement, tube removed, family refusing NG-tube at this time. Pt can make some needs known, call bloom in hand, bed in lowest position.
[2024-03-30 20:35] VITALS: BP 146/92
[2024-03-31 03:01] VITALS: BP 151/87
--- NOTE | 2024-03-31 06:28 | NUR ---
SHIFT SUMMARY: NO ACUTE EVENTS. NO CHANGES IN NEURO EXAM FROM MY PREVIOUS ASSESSMENT. A&O X 2, ABLE TO MAKE HER NEEDS KNOWN, CONFUSED AT TIMES. NO EVENTS ON TELEMETRY, AFIB 70-90'S, NO EPISODES OF RVR O/N. HAD PUREWICK IN TO MANAGE URINE, BUT PERINEUM WAS BECOMING RED AND SWOLLEN SO IT WAS REMOVED TO GIVE THE AREA A BREAK. CHANGED ALL FOAM DRESSINGS COVERING BONY PROMINENCES: SCAB ON L SHOULDER APPEARS TO HAVE ESCHAR AND SLIGHT BROWNISH EXUDATE. SKIN ON FEET IS RED AND NON BLANCHABLE. WAS ABLE TO SLEEP WELL FOR A FEW HOURS.
[2024-03-31 06:47] LABS: Bun/Creatinine Ratio 59.4 (12.0-20.0); Calcium, Blood 8.8 mg/dL (8.5-10.1); Creatinine, Blood 0.71 mg/dL (0.40-1.00); Magnesium, Blood 2.3 mg/dL (1.6-2.4); Phosphorus, Blood 3.6 mg/dL (2.5-4.9); Potassium, Blood 3.3 mmol/L (3.5-5.5)
[2024-03-31] MEDS ORDERED: Potassium Chloride 40 MEQ in NS 250 ML IV ONE (07:35)
[2024-03-31 07:47] VITALS: BP 148/83
[2024-03-31] MEDS ORDERED: Furosemide 10 MG / ML 2ML Vial IV SCH (13:00)
[2024-03-31 15:24] VITALS: BP 155/81
--- NOTE | 2024-03-31 16:21 | NUR ---
VSS, A-OX3 disoriented to time and confused at time, states moderate pain that was well managed with prn supository tylenol, denies SOB, on bedrest, on RA. Lungs diminished with fine crackles in bases, heart A-Fib on tel, bowel sounds hypoative, incotinent of urine, q2 turn, L- weakness and parital prayslis with very limited motion, on PPN. Pt can make some needs known, call bloom in hand, bed in lowest position.
[2024-03-31 19:53] VITALS: BP 99/56
--- NOTE | 2024-03-31 21:30 | NUR ---
CALLED ON-CALL HOSPITALIST REGARDING PT'S LIPIDS WHICH WERE SCHEDULED TO BE GIVEN AT 0900. VERBAL ORDER RECEIVED TO RE-TIME MEDICATION. CALLED PHARMACY TO DISCUSS BEST METHOD TO RE-TIME. PHARMACIST STATED TO DOCUMENT ON THE 0900 DOSE WITHOUT RE-TIMING AND REQUEST DAY SHIFT TOMORROW TO CONSULT WITH THE INVOICE CLASSIFICATION CLERK REGARDING TIMING OF NEXT DOSE.
[2024-04-01] VITALS (31 sets, daily range): BP systolic 90–180; BP diastolic 49–149
--- NOTE | 2024-04-01 04:36 | NUR ---
SHIFT SUMMARY: MIKALA IS A&OX3-4 WITH EPISODES OF OCCASIONAL FORGETFULNESS/CONFUSION REQUIRING MULTIPLE REORIENTATIONS AT TIMES. SOFT-TOUCH CALL LIGHT PROVIDED. Q2 TURNS, ATTENDS IN PLACE. PT IS INCONTINENT OF BLADDER AND BOWEL. IV NUTRITION INFUSING, WILL NEED TO DISCUSS TIMING OF LIPIDS WITH LEAD RAMP SERVICE MAN TODAY. PT IS NPO, POSSIBLE PEG TUBE PLACEMENT PER SURGEON'S NOTE (TIMING UNKNOWN). SHE IS ABLE TO MAKE HER NEEDS KNOWN. SHE IS LYING IN BED WITH THE CALL LIGHT IN REACH, BED IN LOWEST POSITION. WILL GIVE REPORT TO DAY SHIFT RN.
[2024-04-01 05:36] LABS: Anion Gap 9 mmol/L (3-11); Blood Urea Nitrogen 44 mg/dL (8-24); Bun/Creatinine Ratio 65.2 (12.0-20.0); CO2, Blood 25 mmol/L (21-32); Calcium, Blood 8.7 mg/dL (8.5-10.1); Chloride, Blood 111 mmol/L (98-108); Creatinine, Blood 0.68 mg/dL (0.40-1.00); Glomerular Filtration Rate 84 (60-); Glucose, Blood 130 mg/dL (70-99); Magnesium, Blood 2.4 mg/dL (1.6-2.4); Phosphorus, Blood 3.3 mg/dL (2.5-4.9); Potassium, Blood 3.9 mmol/L (3.5-5.5); Sodium, Blood 141 mmol/L (136-145); Triglycerides 298 mg/dL (30-160)
[2024-04-01] MEDS ORDERED: CeFAZolin Sodium 2,000 MG in NS 100 ML IV SCH (12:10)
[2024-04-01] MEDS ORDERED: Lactated Ringer's 1,000 ML IV SCH (12:10)
[2024-04-01] MEDS ORDERED: Lactated Ringer's 1,000 ML IV ONE (12:20)
[2024-04-01] MEDS ORDERED: propofoL 20 ML IV ONE ×2 (12:54)
--- NOTE | 2024-04-01 13:02 | NUR ---
04/01/24 1302 Jeri Ridley History, Chart, Medications and Allergies reviewed before start of procedure.MONITOR INTACT WITH CONTINUOUS PULSE OXIMETRY, CONTINUOUS END TITAL CO2, AND INTERMITTENT BLOOD PRESSURE.3-LEAD EKG REVIEWED WITH PHYSICIAN PRIOR TO START OF PROCEDURE.O2 VIA POM INTACT THROUGHOUT SEDATION/PROCEDURE.Bite Block Placed.MALLAMPATI CLASS 4 AIRWAY: SOFT PALATE IS NOT VISIBLE. PT ORAL MUCOSA VERY DRY. SHE IS VERY WEAK AND UNABLE TO FULLY OPEN HER MOUTH.
[2024-04-01] MEDS ORDERED: Fat Emulsion 20 % IV 250 ML IV SCH (18:00)
--- NOTE | 2024-04-01 20:07 | NUR ---
SHIFT SUMMARY- PT ALERT AND ORIENTED TO SELF & FAMILY. PT IN BED, REPOSITIONED Q2, BED BATH COMPLETED TODAY ALL MEPILEX WERE CHANGED. FEEDING TUBE PLACED TODAY. SOME BLEEDING AT THE INSERTION SITE, SATURATED A PILLOW AND GOWN, GAUZE WAS REPLACED WITH A FRESH GAUZE SPOUNGE, AND LINNENS CHANGED, NO FURTHER BLEEDING NOTED. CALLED DR CARDONA NURSE NOTIFY STATES OK TO USE PEG TUBE AT 1900 TODAY. CALLED TO CLARIFY IT HAS ONLY BEEN 6 HOURS SINCE PLACEMENT. HE CONFIRMED OK TO USE TUBE NOW. FAMILY IS AWARE. NIGHT RN AWARE. BEDSIDE REPORT COMPLETED WITH NIGHT RN. PT IN BED, CALL LIGHT IN REACH, SHE DOES NOT USE IT HERSELF THOUGH, NO S&S OF DISTRESS, FAMLY AT THE BEDSIDE.
[2024-04-01] MEDS ORDERED: HYDROcodone 7.5MG-APAP 325MG /15ML UDC PT PRN (21:05)
[2024-04-02 05:06] VITALS: BP 128/63
--- NOTE | 2024-04-02 06:28 | NUR ---
EXERCISE TEACHER SUMMARY PATIENT HAD FAMILY AT BEDSIDE AT START OF SHIFT. PT POST OP FROM PEG TUBE PLACEMENT. POST OP VITALS COMPLETE. STARTED JEVITY 1.2 AT 15MLS AN HOUR PER DR ORDER TO BEGIN TF; STARTED TUBE FEED AT 2030. PT HOB AT 40 DEGREES. PT TOLERATING TUBE FEED WELL. RESIDUAL OF 15MLS PULLED AFTER 4 HOURS OF FEED AND PLACED BACK. PT TITRATED UP TO 25MLS AN HOUR AT 0430. CONTINUING TO TOLERATE WELL. PT C/O OF PAIN IN ABD. CALL TO OPTICAL GOODS WORKER/DR JARVIS. NEW ORDER FOR 7.5/325 HYDROCODONE SUSPENSION; ADMIN THROUGH FEEDING TUBE; GOOD RESULT FOR PAIN RELIEF AND PT WAS ABLE TO SLEEP WELL T/O THE NIGHT. VITALS MONITORED. PT IS SLOW TO RESPONDS BUT MAKING NEEDS KNOWN AND RESPONDING APPROPRIATELY. LEFT SIDE DEFFICIT. CALL LIGHT ACCESSIBLE. REGULAR INTERVAL ROUNDINGS EVERY 1-2 HOURS TO ASSESS NEEDS, ASSESS TF, AND ASSESS IV SITE WITH CLINAMEX RUNNING. PT REPOSITION Q2. PURE WIC PLACED FOR INCONTINENCE. MEPILEX TO COCCYX; SKIN DEEP RED, BUT BLANCHABLE.
[2024-04-02 06:36] LABS: Bun/Creatinine Ratio 66.2 (12.0-20.0); Calcium, Blood 8.8 mg/dL (8.5-10.1); Creatinine, Blood 0.65 mg/dL (0.40-1.00); Magnesium, Blood 1.9 mg/dL (1.6-2.4); Phosphorus, Blood 3.7 mg/dL (2.5-4.9); Potassium, Blood 3.8 mmol/L (3.5-5.5)
[2024-04-02 07:31] VITALS: BP 150/94
[2024-04-02 08:45] VITALS: BP 140/109
--- NOTE | 2024-04-02 08:54 | NUR ---
NOTIFIED BY Esphion, PT PULSE SUSTAINED 130'S - 150'S > 5 MIN. LOPRESSOR 2.5 MG IV ADMINISTERED AT 0837 PER ORDER. AT 0845, BP 140/109, P 80'S - 90'S. PT RN, Eugenio HOOPER, NOTIFIED UPON RETURN FROM BREAK. SHE WILL MONITOR.
--- NOTE | 2024-04-02 11:45 | NUR ---
Spiritual care Visit. Pt. is somolent and not responsive during my entire visit. Facilitated an update from the Pts. daughter who was at bedside. Liborio reports that Pt. had an active day, on the day before and that the Pt. is likely exhausted. Daughter verbalizes that the Pt. and family have each received magnificent care from the medical staff. Daughter verbalized gratitude for the spiritual care visit.
[2024-04-02 16:17] VITALS: BP 121/69
[2024-04-02 19:19] VITALS: BP 129/55
--- NOTE | 2024-04-02 19:45 | NUR ---
SHIFT SUMMARY: PT IS A/O X 2, LETHARGIC MOST OF THE DAY. PLEASANT AND COOPERATIVE. BEDREST AT THIS TIME. L SIDE COMPLETELY FLACCID. PURWICK BEGAN DRAINING CLOUDY URINE. NOTIFIED MD AND ORDER RECEIVED TO OBTAIN URINE SAMPLE TO TEST FOR UTI. SHE HAD GOOD OUTPUT. PEGTUBE INSERTION SITE WITHOUT TENDERNESS, REDNESS OR SWELLING. RESIDUALS HAVE BEEN 5 CC OR LESS. ADVANCED FEEDING TO 35 MLS TODAY AND PT TOLERATING WELL. REPOSITIONED PT Q2 HOURS PER PROTOCOL. DAUGHTER ASSISTED WITH CARE. EDUCATED DAUGHTER WHILE SHE OBSERVED WITH TUBE FEEDING MAINTENANCE AND CARE. MEPILEX ON BOTTOM FOR PROTECTION CDI. NO SKIN BREAKDOWN NOTED. STARTED BOWEL CARE REGIMEN THIS MORNING FOR NO BM X 3 DAYS.
[2024-04-02] MEDS ORDERED: Metoprolol Tartrate 25 MG Tab PT SCH (21:00)
[2024-04-02] MEDS ORDERED: Metoprolol Tartrate 25 MG Tab PO SCH (21:00)
[2024-04-03 02:48] VITALS: BP 144/78
--- NOTE | 2024-04-03 06:24 | NUR ---
SHIFT SUMMARY: A7O TO SELF AND PERSON, PT LETHARGIC W/ MINIMAL RESPONSES. PT HAS L FACIAL DROOP, L ATAXIA. RA NO S/S SHORTNESS OF BREATH. TELEMETRY A-FIB PT DENIES CP/PRESSURE. Q2 TURN WITH PILLOW SUPPORT TO PROTECT PTS ZOFIA PROMINENCES, FREQUENT ROUNDING D/T PT LACK OF COMMUNICATIO WITH STAFF. SAFETY ENSURED W/ MEASURES MONITORED. MEPILEXES IN PLACE PREVENTATIVE FOR SKIN BREAKDOWN. PT INCONTINENT W/ BRIEF IN PLACE. LAST BM 03/30. PEG IN PLACE. TF JEVITY 1.2 INCREASED 2030 TO 45 PT TOLERATED WELL, MINIMAL RESIDUALS <5 ML. 0630 INCREASED TF JEVITY TO 55ML/ HR GOAL RATE. PT TOLERATING WELL. NPO STATUS MAINTAINED. Q6 ACHS. TYLENOL SUPPOSITORY ADMIN FOR PT REPORTED MINMAL PAIN. BED LOCKED AND LOW, FREQUENT ROUNDING.
[2024-04-03 07:30] LABS: Source, Urine Straight Cath
[2024-04-03 07:40] VITALS: BP 144/81
[2024-04-03 07:40] LABS: Appearance, Urine Clear (Clear); Bilirubin, Urine Neg (Neg); Blood, Urine Neg (Neg); Color, Urine Yellow (P-Yellow); Glucose Qualitative, Urine Neg (Neg); Ketones, Urine Neg (Neg); Leukocyte Esterase, Urine 1+ (Neg); Nitrite, Urine Neg (Neg); Protein, Urine Neg (Neg); Urobilinogen, Urine NORM (Normal)
[2024-04-03 08:09] LABS: Bacteria Few /hpf; Red Blood Cells, Urine 0-2 /hpf (0-2); Squamous Epithelial Cells Few /hpf (Few)
[2024-04-03] MEDS ORDERED: Morphine Sulfate 20 MG/1ML 1 ML Oral Syringe SL PRN (13:10)
--- NOTE | 2024-04-03 14:20 | NUR ---
Pt's family have noted the patient's mentation has continued to decline, with increasing confusion. Pt showing poor rehab potential. PEG tube has been placed, and pt has been receiving tube feeding. However, they have elected to take the patient home to her daughter Zabrina's house with hospice. [facility] has agreed to admit this patient, and they are working to see if her tube feedings will be covered by hospice.
[2024-04-03] MEDS ORDERED: Acetaminophen 160MG / 5ML 10.15 UDC PT PRN (14:25)
[2024-04-03] MEDS ORDERED: Enoxaparin 30 MG/0.3 ML SYR SC SCH (15:00)
[2024-04-03 15:13] VITALS: BP 162/63
--- NOTE | 2024-04-03 17:31 | NUR ---
Spiritual Care Visit. Pt. is resting but repsonds to my voice when I come to her bedside. Pts. daughter is present. Pt. displayes evidence of being in discomfort so this ink technician vowed to keep the visit short. Pt. verbalized her concerns that she has no strength. Pt. agreed to have this ink technician pray. Prayed with Pt. Pt. and daughter verbalized gratitude for the spiritual care visit.
[2024-04-03 19:09] VITALS: BP 154/63
--- NOTE | 2024-04-03 20:06 | NUR ---
DAY SHIFT SUMMARY: A&Ox2; SELF AND CHILDREN IN ROOM. SLEPT MAJORITY OF SHIFT. FAMILY AT BEDSIDE. INTERMITTENT APNIC EPISODES; ROXICODONE DENIED BY FAMILY AT THIS TIME. REPOSITION Q2h. PUREWICK FOR VOIDING. NO BM. JEVITY 2.1 TUBE FEEDINGS TO GOAL. PLAN TO GO HOME ON HOSPICE MONDAY. BED IN LOWEST POSITION. CALL LIGHT WITHIN REACH AND FAMILY AWARE OF ITS LOCATION. REPORT TO ONCOMING RN.
[2024-04-04 03:45] VITALS: BP 126/96
[2024-04-04 05:52] LABS: Creatinine, Blood 0.68 mg/dL (0.40-1.00); Magnesium, Blood 2.5 mg/dL (1.6-2.4); Phosphorus, Blood 2.8 mg/dL (2.5-4.9); Potassium, Blood 4.3 mmol/L (3.5-5.5)
[2024-04-04] MEDS ORDERED: Lansoprazole 15 MG TAB.RAP.DR PT SCH (06:00)
[2024-04-04 08:10] VITALS: BP 171/93
[2024-04-04] MEDS ORDERED: Aspirin 81 MG Chew PT SCH (09:00)
--- NOTE | 2024-04-04 14:47 | NUR ---
PATIENT EXPERIENCING AIR HUNGER GAVE 5MG ROXANOL. PATIENT IS CURRENTLY ON COMFORT CARE.
[2024-04-04 15:24] VITALS: BP 129/74
[2024-04-04] MEDS ORDERED: Atropine Sulfate 1% Opth Soln 2ML BTL SL PRN (17:10)
[2024-04-04] MEDS ORDERED: Morphine Sulfate 20 MG/1ML 1 ML Oral Syringe SL PRN (17:10)
[2024-04-04] MEDS ORDERED: LORazepam 1 MG Tab PT PRN (17:10)
[2024-04-04] MEDS ORDERED: Scopolamine Hydrobromide Patch TOP PRN (17:10)
[2024-04-04 21:57] VITALS: BP 144/57
--- NOTE | 2024-04-05 16:59 | NUR ---
COMFORT CARE / ORDERS UPDATED PER CONVERSATION WITH PROVIDER PROVIDER WOULD LIKE PT TO CONTINUE MOST MEDICATIONS, (IE. METOPROLOL, BABY ASA, LASIX, ABX) UNTIL PT IS EVALUATED BY PROVIDER TOMORROW 04/06/24. ALL OTHER MEDICATIONS HAVE BEEN D/C'D PER PROVIDER VERBAL ORDER. PT RESTING WITH EYES CLOSED IN HOSPITAL BED APX 60 DEGREE ANGLE. WHEN THIS PC RN AND FAMILY WERE TALKING ABOUT PT'S PLUSHY, MARY SUAREZ, SHE VERBALLY RESPONDED WITHOUT OPENING HER EYES. PT'S DTR REPORTS TUBE FEEDING HAS BEEN STOPPED. PRIMARY RN REPORTS ROXANOL IS ADEQUATELY MANAGING RESPIRATORY S/SX. PROVIDED BLUE (GONE FROM MY SIGHT) AND PINK (THE ELEVENTH HOUR) HOSPICE BOOKS TO FAMILY. GENTLE EDUCATION FOR FAMILY ON WHAT THEY MAY SEE PT PROGRESSES THROUGH THE DYING PROCESS. UPDATE PROVIDED TO PRIMARY NURSE, AMALIA. PC WILL REMAIN AVAILABLE NEEDED. COMFORT CART ORDERED. ANTICIPATED DISCHARGE IS 04/08/24 WITH [facility].
--- NOTE | 2024-04-05 17:07 | NUR ---
SHIFT SUMMARY PATIENT SOMNOLENT AND INTERMITTENTLY RESPONDING TO VERBAL STIMULI THIS SHIFT. DAUGHTER AND DAUGHTER IN LAW AT BEDSIDE THROUGHOUT THE SHIFT. PALLIATIVE CARE AND LINE INSPECTOR AT BEDSIDE MULTIPLE TIMES THROUGHOUT SHIFT. PATIENT ADMINISTERED MORPHINE PER NOV. FAMILY REQUESTED TO HOLD ALL MORNING MEDICATIONS AND TUBE FEEDING THIS AM EXCEPT FOR PAIN MEDICATION AND MEDS FOR COMFORT. PATIENT REPOSITIONED Q 2 HOURS, WHEN FAMILY AGREED. PALLIATIVE STATED TO USE MORPHINE OVER FENTANYL IN ORDER TO ENSURE MEDICATIONS PATIENT WILL BE DISCHARGING WITH WILL BE ADEQUATE FOR PAIN CONTROL. PALLIATIVE CARE ALSO STATED TO CONTINUE SOME OF PATIENT'S SCHEDULED MEDS AND TO CONTINUE TO OBTAIN VITAL SIGNS. NO OTHER CONCERNS THIS SHIFT, [ATIENT CURRENTLY RESTING COMFORTABLY IN BED.
--- NOTE | 2024-04-06 06:16 | NUR ---
SHIFT SUMMARY: Pt is admitted for CVA and is a DNR. is on comfort care. Is alert sometimes and able to make needs known. ADLS have been 2p during shift with care being done mostly by family at bedside. Pain has been managed with PRN pain management.
--- NOTE | 2024-04-06 12:56 | NUR ---
Pt resting appears to be transitioning required medications for aggitation. Family at bedside.
--- NOTE | 2024-04-06 17:06 | NUR ---
PT HAS BEEN RESTING ALL DAY. TREATED PER EMAR FOR COMFORT. FAMILY HAS BEEN AT BEDSIDE AND HAVE BEEN CLOSELY INVOLVED WITH CARE. NO DISTRESS HAS BEEN NOTED WILL CONTINUE TO MONITOR.
--- NOTE | 2024-04-07 06:46 | NUR ---
END OF SHIFT SUMMARY PT REMAINS ON COMFORT CARE, FAMILY ON BEDSIDE. MEDICATED WITH ROXANOL, ATIVAN, AND ATROPINE DROPS WITH GOOD EFFECT. REPOSITIONED MOSTLY BY FAMILY. FRANCHESKA COMPLETED THIS AM, RICHIWICK AND LINEN CHANGED.
--- NOTE | 2024-04-07 17:43 | NUR ---
PT HAS NOT WOKE UP TODAY. FAMILY HAS STAYED AT BEDSIDE THROUGHOUT HER STAY HERE. PT TREATED PER EMAR FOR COMFORT. FAMILY CALLS WHEN THEY NEED THINGS. PT TURNED Q2HRS AND NEEDED. WILL CONTINUE TO MONITOR CLOSELY.
--- NOTE | 2024-04-08 06:03 | NUR ---
END OF SHIFT SUMMARY PT REMAINS ON COMFORT CARE. NO EPISODES OF AGITATION/RESTLESSNESS WITNESSED OR REPORTED. MEDICATED AT MINIMUM Q4 WITH ATIVAN AND ROXANOL. CURRENT REGIMEN OF 2MG OF ATIVAN AND 15MG OF ROXANOL APPEARS TO BE KEEPING PT COMFORTABLE, FAMILY IN AGREEMENT. ATROPINE GIVEN AND SCOPALOMINE PATCH APPLIED BEHIND RIGHT EAR FOR INCREASED SECRETIONS. SUCTION REMAINS AT BEDSIDE BUT DID NOT HAVE TO UTILIZE. PUREWICK REMAINS IN PLACE, NO OUTPUT THIS SHIFT. FAMILY REMAINS AT BEDSIDE, VERY HANDS ON WITH CARE. PT TURNED FREQUENTLY BY FAMILY OR WITH STAFF ASSIST. NO ACUTE EVENTS OVERNIGHT.
--- NOTE | 2024-04-08 13:50 | NUR ---
Pt apprears to be transitioning. May not survive tranport. Daughter does not want to leave bedside. Spoke with daughter about her love and devotion and Her mothers process and progression. Will monitor for seizure activity or worsening dyspnea.
--- NOTE | 2024-04-08 18:19 | NUR ---
SHIFT SUMMARY PT CONT COMFORT CARE. PT HAS BEEN REPOSITIONED EVERY 2HRS AND CONT TO RECEIVE PRN ATIVAN AND ROXANOL. PT HAS HAD FAMILY AT BEDSIDE ALL SHIFT. PT NOTED TO HAVE MOTTLING TO BILAT FEET.
[2024-04-09] MEDS ORDERED: Morphine Sulfate 4 MG/1 ML Injection IV PRN (03:10)
[2024-04-09] MEDS ORDERED: LORazepam 2 MG/ML 1ML Injection IV PRN (03:10)
--- NOTE | 2024-04-09 06:01 | NUR ---
SUMMARY: PT REMAINS ON COMFORT MEASURES W/SUPPORTIVE FAMILY AT BEDSIDE. SHE'S BEEN UNROUSABLE AND NONRESPONSIVE ENTIRETY OF NOCTE, RESTING W/EYES CLOSED AND TURN SCHEDULE MAINTAINED. PT RECEIVED SL ROXANOL AND PO ATIVAN CRUSHED VIA PT PRN PER EMAR FOR AIR HUNGER AND S/S ANXIETY. SHE IS HAVING INCREASED DIFFICULTY MAINTAINING AIRWAY THOUGH SO MD WAS NOTIFIED AND IV ROUTES OF PRN MEDS WERE RX'D AND RECEIVED WELL. PUREWIC WAS REMOVED D/T NO URINE OUTPUT AND PEG TUBE IS CLAMPED WHEN NOT IN USE. RESPS ARE MOSTLY TACHY AND IRREGULAR W/PERIODS OF APNEA, SCOPOLAMINE PATCH REMAINS IN PLACE FOR ORAL SECRETIONS. NO ACUTE CHANGES. WCTM AND REPORT TO DAY RN.
--- NOTE | 2024-04-09 10:58 | NUR ---
"Spiritual/Comfort Care Care Visit | Palliative Nurse request Pt. is on Comfort Care and is mostly not reasponsive. Pts. daughter and DIL are at bedside and welcome my visit. Facilitate an update on the Pts. condition. Daughter verbalized that the Pt. was vary alert and verbal on Monday, but not so much since. Considered matters of hope, belief, and transition, as the family has expereinced a great deal of loss recently. Pastoral Care is given. Considered future decisions. Family has chosen [facility] as their home of choice. Prayed with familiy, and prayed for the Pt. Family verbalized gratitude for the spiritual care visit, and welcomed this office machines wirer to return even today."
--- NOTE | 2024-04-09 12:00 | NUR ---
SYMPTOM MANAGEMENT CALLED TO ROOM BY PRIMARY NURSE. PT'S TERMINAL AGGITATION AND LABORED BREATHING NEEDED WERE NOT WELL CONTROLLED. MET WITH PT, FAMILY, PROVIDER AND PRIMARY RN. INTERVENTIONS APPLIED: REPOSITION ON LEFT SIDE, HOB ELEVATED TO 45 DEG, ORAL CARE, 20 MG OF ROXANOL AND 2 MG OF ATIVAN ADMINISTERED. AT CONCLUSION OF VISIT PT'S BREATHING HAD EASED. PC WILL REMAIN AVAILABLE. D/C'D IV ATIVAN AND MORPHINE PER PROVIDER REQUEST.
--- NOTE | 2024-04-09 12:48 | NUR ---
PT AT 1214 VERIFIED BY ZITA PRINCE. FAMILY AT BEDSIDE DENIES WANTING TO SPEAK WITH PALLATIVE OR A POLLY AT THIS TIME. FAMILY STATED THEY WOULD LIKE BODY RELEASED TO [place]. PHYSICAN NOTIED BY SARAN PRINCE.
== END 2024-04-09 12:14 | DRG 64 ==
LOC: ER 13:33 → ERHOLD 17:17 → MEDS 17:17 → ER 17:17 → MEDS 21:57
PROVIDERS: Emergency Medicine; Family Medicine; Surgery; ADMIT Internal Medicine
PROC: 3E0336Z Introduction of Nutritional Substance into Peripheral Vein, Percutaneous Approach (ICD-10-PCS; 2024-03-28)
PROC: 0DH63UZ Insertion of Feeding Device into Stomach, Percutaneous Approach (ICD-10-PCS; principal; 2024-04-01 12:30)
DX: I63.231 Cerebral infarction due to unspecified occlusion or stenosis of right carotid arteries (principal); E43 Unspecified severe protein-calorie malnutrition; I50.23 Acute on chronic systolic (congestive) heart failure; J69.0 Pneumonitis due to inhalation of food and vomit; G93.41 Metabolic encephalopathy; G81.94 Hemiplegia, unspecified affecting left nondominant side; R41.4 Neurologic neglect syndrome; Z68.1 Body mass index [BMI] 19.9 or less, adult; Z51.5 Encounter for palliative care; Z66 Do not resuscitate; I48.91 Unspecified atrial fibrillation; T45.516A Underdosing of anticoagulants, initial encounter; I27.20 Pulmonary hypertension, unspecified; I25.10 Atherosclerotic heart disease of native coronary artery without angina pectoris; I11.0 Hypertensive heart disease with heart failure; R29.717 NIHSS score 17; R13.10 Dysphagia, unspecified; R29.810 Facial weakness; Z91.138 Patient's unintentional underdosing of medication regimen for other reason; Z95.1 Presence of aortocoronary bypass graft; Z79.01 Long term (current) use of anticoagulants
CPT/HCPCS: 36415; 70450; 70496; 70498; 70551; 71045; 80048; 80053; 80061; 80162; 81001; 82947; 83735; 83880; 84100; 84145; 84478; 85025; 85027; 85610; 85730; 87086; 92526; 92610; 93005; 93010; 93306; 97112; 97162; 97166; 97530; 99285-25; A9270; C1769; J0295; J0360; J1650; J1940; J2060; J2270; J2704; J3010; J3411; J3480; J7050; J7120; Q9967